=== PATIENT | female | born 1990 | race American Indian/Alaskan Native ===

== ENCOUNTER 2018-05-24 09:32 | Outpatient (CLI) | payer OTHER ==
[~2018-05-24 09:32] MED LIST: Colace 100MG PO; DURICEF 500 MG CAPSULE PO; Mylicon 125MG PO; OXYC1TAB9 PO; PRENA1 PLUS CO1 EACH PO; PRENATE ADVANCE PO
[2018-05-24] MEDS ORDERED: PRENATAL TABLE1 EAC1 PO (10:35)
[2018-05-24] MEDS ORDERED: ASA81 MG PO (10:36)
== END 2018-05-24 14:36 | disposition home or self-care (01) ==
LOC: OBS/DEL 09:32
DX: O13.2 Gestational [pregnancy-induced] hypertension without significant proteinuria, second trimester (principal); Z34.82 Encounter for supervision of other normal pregnancy, second trimester

== ENCOUNTER 2018-07-29 19:09 | Outpatient (CLI) | payer OTHER ==
[~2018-07-29 19:09] MED LIST changes: +ASA81 MG PO; +PRENATAL TABLE1 EAC1 PO
== END 2018-07-30 17:15 | disposition home or self-care (01) ==
LOC: OBS/DEL 19:09
DX: O26.893 Other specified pregnancy related conditions, third trimester (principal); M54.5 Low back pain; R10.2 Pelvic and perineal pain; Z34.83 Encounter for supervision of other normal pregnancy, third trimester

== ENCOUNTER 2018-08-15 09:08 | Inpatient (IN) | payer OTHER ==
[~2018-08-15] VITALS: Ht 170.2 cm; Wt 118.8 kg
[2018-08-16] MEDS ORDERED: DUI500 PO (08:16)
[2018-08-16] MEDS ORDERED: COLACE100 MG PO (08:17)
[2018-08-16] MEDS ORDERED: SIMETHICONE125 M1 PO (08:18)
== END 2018-08-20 16:06 | disposition home or self-care (01) | DRG 785 ==
LOC: LDR 09:08 → OB/GYN 09:08
PROVIDERS: ADMIT Obstetrics & Gynecology
PROC: 4A1HXCZ Monitoring of Products of Conception, Cardiac Rate, External Approach (ICD-10-PCS; 2018-08-15)
PROC: 0UL70ZZ Occlusion of Bilateral Fallopian Tubes, Open Approach (ICD-10-PCS; 2018-08-17)
PROC: 10D00Z1 Extraction of Products of Conception, Low, Open Approach (ICD-10-PCS; principal; 2018-08-17 20:00)
DX: O82 Encounter for cesarean delivery without indication (principal); O14.04 Mild to moderate pre-eclampsia, complicating childbirth; Z3A.38 38 weeks gestation of pregnancy; Z37.0 Single live birth; Z30.2 Encounter for sterilization